=== PATIENT | male | born 2000 | race Caucasian/White ===

== ENCOUNTER 2024-09-17 21:24 | Emergency (ER) | payer OTHER, SELFPAY ==
[2024-09-17 21:29] VITALS: BP 137/86
--- NOTE | 2024-09-17 23:09 | ED.GENMED ---
History of Present Illness
General
Chief Complaint: Musculo-Skeletal Complaint
Time Seen by Provider: 09/17/24 22:47
History of Present Illness
History of Present Illness:
24-year-old male presents to the emergency department for evaluation of right ankle pain and swelling after a injury while playing soccer today. He is able to bear weight with pain. Denies any knee or hip pain
Review of Systems
Review of Systems
Allergies reviewed?: Yes
All Other Systems: ROS reviewed and negative except as documented in HPI and ROS
Phy Exam
Physical Exam
Physical Exam:
GEN: Well appearing, NAD, WDWN
HEENT: Oral mucosa moist, no scleral icterus
Cardiac: Regular rate
Lung: No respiratory distress, no tachypnea
MSK:. Marked bruising and swelling of the right lateral ankle with tenderness to the lateral malleolus, no tenderness to the proximal fibula or base of the fifth metatarsal, range of motion is limited by swelling
Skin: Good color, no pallor or jaundice, no rashes
Neuro: AO x3, moves all extremities freely
Psych: Calm, cooperative
Course
Orders/Labs/Results
Orders:
Orders
09/17/24 21:28
Ankle, Right 3 view CR [CR Ankle - Right Min 3 Views *] Stat
Comment:
Reason For Exam: pain
09/17/24 22:57
Tetracaine HCl [Tetracaine 0.5% Ophthalmic Solution] 1 drop .ROUTE .STK-MED ONE
Vital Signs
Initial and Last Documented VS:
Initial Vital Signs
Temp Pulse Resp BP Pulse Ox
98 F 79 16 137/86 99
09/17/24 21:29 09/17/24 21:29 09/17/24 21:29 09/17/24 21:29 09/17/24 21:29
Last Documented Vital Signs
Temp Pulse Resp BP Pulse Ox
98 F 65 16 130/75 99
09/17/24 21:29 09/17/24 23:35 09/17/24 23:35 09/17/24 23:35 09/17/24 23:35
MDM/Problems Addressed
MDM/Problems Addressed:
x-rays were negative for acute fracture however given the severe swelling and bruising he likely has a significant ligamentous injury. Placed in orthopedic boot and will refer to orthopedics as an outpatient
*Pulse Oximetry
Patient hypoxic: no (99% RA)
*Critical Care Note
Total Time (30-74mins, 75-104mins- exclusive of procedures): Not Applicable
ED Attending Note
-
Portions of this chart may have been created with voice recognition software.� Occasional wrong word or��sound alike� substitutions may have occurred due to the inherent limitations of voice recognition software.
Discharge Plan
Departure
Patient Disposition: Home (Routine Discharge)
Date of Disposition: 09/17/24
Time of Disposition: 23:10
Patient with high blood pressure during this ER visit?: No
Discharge Problem:
Right ankle sprain
Instructions: Ankle sprain
Prescriptions:
No Action
No Current Medications
0
Referrals:
Ki Mora MD [Active, Orthopedics]
Activity Restrictions/Additional Instructions:
Use the boot at all times for walking purposes however you may remove for showering and sleeping if needed, follow-up with orthopedics as soon as possible
Interventions
Interventions:
*Risk Screen - Suicide Last Done: 09/17/24 21:29
*General Assessment Last Done: 09/17/24 23:34
*Neglect/Abuse Screening Last Done: 09/17/24 21:29
*ED- Fall Risk Assessment Last Done: 09/17/24 23:34
*ED COVID-19 Vaccine History Last Done: 09/17/24 23:34
*Nursing Disposition Last Done: 09/17/24 23:58
ED-Musculoskeletal Assessment Last Done: 09/17/24 23:34
Discharge Date and Time
Discharge Date/Time: 09/18/24 00:00
Print Language: WELSH
[2024-09-17 23:32] VITALS: BMI 22.8
[2024-09-17 23:35] VITALS: BP 130/75
== END 2024-09-18 | disposition home or self-care (01) ==
LOC: EMR 21:24
PROVIDERS: EMERGENCY PHYSICIAN Student in an Organized Health Care Education/Training Program; FAMILY PHYSICIAN Family Medicine
DX: S93.401A Sprain of unspecified ligament of right ankle, initial encounter (principal); X50.1XXA Overexertion from prolonged static or awkward postures, initial encounter; Y93.66 Activity, soccer
CPT/HCPCS: 99283; 73610